=== PATIENT | female | born 1965 | race Caucasian/White ===

== ENCOUNTER 2023-04-09 09:40 | Emergency (ER) | payer BC, SELFPAY ==
[2023-04-09 09:45] VITALS: BP 111/64; PULSE 43; RESP 16; TEMP 36.8; O2SAT 97; BMI 25.2
--- NOTE | 2023-04-09 10:04 | PC.NURSE ---
urine sample collected at this time
[2023-04-09 10:12] LABS: Bilirubin Urine NEGATIVE (NEGATIVE); Blood Urine SMALL (NEGATIVE); Clarity Urine CLEAR (CLEAR); Color Urine LT. YELLOW (YELLOW); Glucose Urine UA NEGATIVE (NEGATIVE); Ketones Urine NEGATIVE (NEGATIVE); Leukocyte Esterase Urine NEGATIVE (NEGATIVE); Nitrite Urine NEGATIVE (NEGATIVE); Protein Urine NEGATIVE (NEG/TRACE); Specific Gravity Urine 1.015 (1.005-1.025); Urobilinogen Urine 0.2 EU/dL (0.2-1.0)
[2023-04-09 10:14] LABS: Urine Microscopic Indicated YES
[2023-04-09 10:21] LABS: Basophils Absolute Auto 0.1 10^3/uL (0.0-0.1); Basophils Percent Auto 0.3 % (0.2-2.0); Eosinophils Absolute Auto 0.1 10^3/uL (0.0-0.7); Eosinophils Percent Auto 0.4 % (0.9-7.0); Hematocrit 37.3 % (36.0-48.0); Hemoglobin 12.7 g/dL (12.0-16.0); Immature Granulocytes Abs Auto 0.04 10^3/uL (0.00-0.03); Immature Granulocytes Pct Auto 0.3 % (0.0-0.5); Lymphocytes Absolute Auto 1.5 10^3/uL (1.2-3.8); Mean Platelet Volume 8.6 fL (9.5-13.5); Monocytes Absolute Auto 1.1 10^3/uL (0.3-0.8); Monocytes Percent Auto 7.1 % (1.7-12.0); Neutrophils Absolute Auto 12.4 10^3/uL (1.4-6.5); Neutrophils Percent Auto 81.9 % (43.0-75.0); Platelet Count 356 10^3/uL (150-450); Red Cell Distribution Width 13.2 % (11.0-15.0); White Blood Count 15.2 10^3/uL (4.0-11.0)
[2023-04-09 10:23] LABS: Bacteria Urine NONE SEEN #/HPF (NONE SEEN); Cast Seen? NONE SEEN #/LPF (NONE SEEN); Crystals Seen? None Seen #/HPF (None Seen); Mucus Urine NONE SEEN (NONE SEEN); Squamous Epithelial Cell Urine MODERATE #/LPF (NONE/RARE); Urine Culture Indicated NO; WBC Urine NONE SEEN #/HPF (NONE SEEN)
[2023-04-09] MEDS: PHENAZOPYRIDINE 100 MG TABLET PO (10:28)
[2023-04-09] MEDS: ONDANSETRON 4 MG RAPDIS TABLET SL (10:34)
[2023-04-09 10:35] LABS: Anion Gap 11.8; BUN Creatinine Ratio 13.1; Calcium 8.6 mg/dL (8.5-10.1); Carbon Dioxide 26.2 mmol/L (21.0-32.0); Chloride 99 mmol/L (98-107); Estimated GFR (African America >60 (>=60); Estimated GFR (Non-African Ame >60 (>=60); Glucose 119 mg/dL (74-106); Sodium 133 mmol/L (136-145)
--- NOTE | 2023-04-09 10:52 | CT_ITS ---
The [address] [address] Patient Name: SILVERIO GOODSON MRN: [id number] date: 1965 Sex: F Assigned Patient Location: ER Current Patient Location: ER Accession/Order Number: [id number] Exam Date: 04/09/2023 10:48 Report Date: 04/09/2023 11:15 At the request of: KATYA REED Procedure: CT abdomen pelvis wo con CT abdomen and pelvis without contrast CLINICAL: lower abdominal pain COMPARISON: None. TECHNIQUE: Computed tomography of the abdomen and pelvis was performed without intravenous contrast. Coronal and sagittal reformations were obtained. Dose reduction: mA and/or kV are adjusted by automated exposure control software based on patient size. FINDINGS: Soft tissue structures throughout the abdomen and pelvis are suboptimally evaluated without intravenous and oral contrast. There is a small amount of fluid in the stomach. Small and large bowel loops are normal caliber. There is moderate colonic stool burden and mild sigmoid diverticulosis, and scattered diverticula throughout the remainder of colon. There is subtle stranding and trace fluid around the decompressed mid to distal sigmoid colon (image 112 series 3, image 58 series 5), probably localized area of acute diverticulitis, although would be better evaluated with intravenous contrast. No suspicion for drainable abscess. No free air. Cecum is displaced into the right lower quadrant. The appendix is best seen on image 96 series 3, image 46 series 5), and normal in appearance without acute appendicitis. Liver and spleen size are normal. No inflammation of gallbladder or pancreas. No radiopaque gallstones. Adrenal glands are normal. Kidneys are normal in size without perinephric stranding or hydroureteronephrosis. There is no renal or ureteral calculus. There is a partially exophytic right lower pole renal cyst measuring 4.5 cm. Bladder is decompressed and not well evaluated but no renal stone. Uterus identified. No gross adnexal abnormality. Limited imaging of lower chest demonstrates clear lungs. There are mild endplate degenerative spurs of the thoracolumbar spine. No acute osseous abnormality.. IMPRESSION: 1. Suboptimal evaluation of soft tissue structures inclusive of bowel without intravenous and oral contrast. There is colonic diverticulosis that is worse in the sigmoid, with subtle stranding and trace fluid around the decompressed mid to distal sigmoid colon that is likely acute diverticulitis. Correlate with symptoms and follow-up to resolution. No or free air or suspicion for drainable abscess. 2. Normal appendix. 3. Negative for urinary calculus or renal obstruction/inflammation. Incidental 4.5 cm right renal cyst. 4. Additional incidental findings discussed above. Electronically authenticated by: LIDYA PHAN Date: 04/09/2023 11:15
--- NOTE | 2023-04-09 11:18 | ED_ITS ---
HPI - Abdominal Pain General Chief Complaint: Abdominal Pain Stated Complaint: ABDOMINAL PAIN/CRAMPING/NAUSEA Time Seen by Provider: 04/09/23 10:00 Source: patient Mode of arrival: walk-in Limitations: no limitations History of Present Illness HPI narrative: woke this morning with lower abdominal pain and nausea that comes in waves. No change with 3 soft BMs. No urinary pain. She said that she might be urinating less amounts that normal. No fever or chills. No flank pain. No vomiting but nausea is intermittent. Related Data Previous Rx's Medication Instructions Recorded ciprofloxacin HCl 500 mg tablet 500 mg PO BID #14 tabs 04/09/23 (Cipro) hyoscyamine sulfate 0.125 mg 0.125 mg PO Q6H PRN abdominal pain 04/09/23 sublingual tablet (Levsin/SL) #20 tabs metronidazole 500 mg tablet 500 mg PO TID #21 tabs 04/09/23 ondansetron 4 mg disintegrating 4 mg PO Q6H PRN nausea and 04/09/23 tablet vomiting #20 tabs Allergies Allergy/AdvReac Type Severity Reaction Status Date / Time amoxicillin Allergy Severe Nausea Verified 04/09/23 09:45 PFSH PFS Social History Smoking status: Never smoker Exam Narrative Exam Narrative: Nurses notes and vital signs reviewed and patient is not hypoxic. afebrile General: Well-appearing and in no apparent distress. Skin: Warm, dry, no pallor noted. No rash. Head: Normocephalic, atraumatic. Neck: Supple, non-tender. Eye: Pupils are equal, round and EOMI. No scleral icterus. Ears, Nose, Mouth, and Throat: Oral mucosa is moist Cardiovascular: Regular Rate and Rhythm without murmur, gallop or rub. Respiratory: No accessory muscle use or respiratory distress. Lungs are clear to auscultation, no wheezing, rales or rhonchi Back: No midline thoracic or lumbar vertebral tenderness. No CVA tenderness Musculoskeletal: normal ROM GI: Abdomen is soft, non-distended. Normal bowel sounds. No masses appreciated. suprapubic and lower abdominal tenderness to palpation. No rebound, guarding, or rigidity noted. Neurological: A&O x4. No cranial nerve dysfunction observed. No truncal ataxia. Moves all extremities. Sensation intact. Psychiatric: Cooperative and interactive. Normal mood and affect. Constitutional Vital Signs - 24 hr 04/09/23 09:45 04/09/23 11:35 Temperature 98.3 F 98.2 F Pulse Rate [Monitor] 43 L 81 Respiratory Rate 16 16 Blood Pressure [Right Arm] 111/64 113/68 Pulse Oximetry 97 97 Oxygen Delivery Method Room Air Course Vital Signs Vital signs: Vital Signs Temperature 98.3 F 04/09/23 09:45 Pulse Rate 43 L 04/09/23 09:45 Respiratory Rate 16 04/09/23 09:45 Blood Pressure 111/64 04/09/23 09:45 Pulse Oximetry 97 04/09/23 09:45 Oxygen Delivery Method Room Air 04/09/23 09:45 Temperature 98.2 F 04/09/23 11:35 Pulse Rate 81 04/09/23 11:35 Respiratory Rate 16 04/09/23 11:35 Blood Pressure 113/68 04/09/23 11:35 Pulse Oximetry 97 04/09/23 11:35 Oxygen Delivery Method Room Air 04/09/23 09:45 MDM - Abdominal Pain MDM Narrative Medical decision making narrative: and blood and urine sent for testing. The urine did not show sign of infection. White blood cell count was elevated at fifteen thousand, therefore the patient w as sent for CT scanning of the abdomen pelvis. No contrast was used. CT identified acute appendicitis in the sigmoid colon, consistent with the patient's exam findings. Patient was informed of results, prescribed Cipro, Flagyl, Zofran and Levsin to take at home and instructed to return to the emergency Department if her symptoms worsen. She was given Pyridium in the emergency Department when she 1st presented concerned she might have acute urinary tract infection. She was also given Zofran while in the emergency department. Lab Data Attestation: I reviewed the patient's lab results. Labs: Lab Results 04/09/23 04/09/23 04/09/23 Range/Units 09:56 10:14 10:15 WBC 15.2 H (4.0-11.0) 10^3/uL RBC 4.10 L (4.20-5.40) 10^6/uL Hgb 12.7 (12.0-16.0) g/dL Hct 37.3 (36.0-48.0) % MCV 91.0 (81.0-99.0) fL MCH 31.0 (26.7-34.0) pg MCHC 34.0 (29.9-35.2) g/dL RDW 13.2 (11.0-15.0) % Plt Count 356 (150-450) 10^3/uL MPV 8.6 L (9.5-13.5) fL Neut % (Auto) 81.9 H (43.0-75.0) % Lymph % (Auto) 10.0 L (20.5-60.0) % [place] % (Auto) 7.1 (1.7-12.0) % Eos % (Auto) 0.4 L (0.9-7.0) % Baso % (Auto) 0.3 (0.2-2.0) % Neut # (Auto) 12.4 H (1.4-6.5) 10^3/uL Lymph # (Auto) 1.5 (1.2-3.8) 10^3/uL [place] # (Auto) 1.1 H (0.3-0.8) 10^3/uL Eos # (Auto) 0.1 (0.0-0.7) 10^3/uL Baso # (Auto) 0.1 (0.0-0.1) 10^3/uL Abs Immat Gran (auto) 0.04 H (0.00-0.03) 10^3/uL Imm/Tot Granulo (auto) 0.3 (0.0-0.5) % Sodium 133 L (136-145) mmol/L Potassium 4.0 (3.5-5.1) mmol/L Chloride 99 (98-107) mmol/L Carbon Dioxide 26.2 (21.0-32.0) mmol/L Anion Gap 11.8 BUN 11.0 (7.0-18.0) mg/dL Creatinine 0.84 (0.55-1.02) mg/dL Est GFR ( Amer) >60 (>=60) Est GFR (Non-Af Amer) >60 (>=60) BUN/Creatinine Ratio 13.1 Glucose 119 H (74-106) mg/dL Calcium 8.6 (8.5-10.1) mg/dL Urine Color Lt. yellow (YELLOW) Urine Clarity Clear (CLEAR) Urine pH 8.0 (5.0-9.0) Ur Specific [place] 1.015 (1.005-1.025) Urine Protein Negative (NEG/TRACE) mg/dL Urine Glucose (UA) Negative (NEGATIVE) mg/dL Urine Ketones Negative (NEGATIVE) mg/dL Urine Occult Blood Small A (NEGATIVE) Urine Nitrite Negative (NEGATIVE) Urine Bilirubin Negative (NEGATIVE) Urine Urobilinogen 0.2 (0.2-1.0) EU/dL Ur Leukocyte Esterase Negative (NEGATIVE) Urine RBC 2-5 A (0-2) #/HPF Urine WBC None seen (NONE SEEN) #/HPF Ur Squamous Epith Cells Moderate A (NONE/RARE) #/LPF Urine Crystals None seen (None Seen) #/HPF Urine Bacteria None seen (NONE SEEN) #/HPF Urine Casts None seen (NONE SEEN) #/LPF Urine Mucus None seen (NONE SEEN) Ur Culture Indicated? No Imaging Data ct abd/pelvis: Radiologist's impression: Patient Name: SILVERIO GOODSON MRN: [facility]:[id number] date: 1965 Sex: F Assigned Patient Location: ER Current Patient Location: ER Accession/Order Number: [id number] Exam Date: 04/09/2023 10:48 Report Date: 04/09/2023 11:15 At the request of: KATYA REED Procedure: CT abdomen pelvis wo con CT abdomen and pelvis without contrast CLINICAL: lower abdominal pain COMPARISON: None. TECHNIQUE: Computed tomography of the abdomen and pelvis was performed without intravenous contrast. Coronal and sagittal reformations were obtained. Dose reduction: mA and/or kV are adjusted by automated exposure control software based on patient size. FINDINGS: Soft tissue structures throughout the abdomen and pelvis are suboptimally evaluated without intravenous and oral contrast. There is a small amount of fluid in the stomach. Small and large bowel loops are normal caliber. There is moderate colonic stool burden and mild sigmoid diverticulosis, and scattered diverticula throughout the remainder of colon. There is subtle stranding and trace fluid around the decompressed mid to distal sigmoid colon (image 112 series 3, image 58 series 5), probably localized area of acute diverticulitis, although would be better evaluated with intravenous contrast. No suspicion for drainable abscess. No free air. Cecum is displaced into the right lower quadrant. The appendix is best seen on image 96 series 3, image 46 series 5), and normal in appearance without acute appendicitis. Liver and spleen size are normal. No inflammation of gallbladder or pancreas. No radiopaque gallstones. Adrenal glands are normal. Kidneys are normal in size without perinephric stranding or hydroureteronephrosis. There is no renal or ureteral calculus. There is a partially exophytic right lower pole renal cyst measuring 4.5 cm. Bladder is decompressed and not well evaluated but no renal stone. Uterus identified. No gross adnexal abnormality. Limited imaging of lower chest demonstrates clear lungs. There are mild endplate degenerative spurs of the thoracolumbar spine. No acute osseous abnormality.. IMPRESSION: 1. Suboptimal evaluation of soft tissue structures inclusive of bowel without intravenous and oral contrast. There is colonic diverticulosis that is worse in the sigmoid, with subtle stranding and trace fluid around the decompressed mid to distal sigmoid colon that is likely acute diverticulitis. Correlate with symptoms and follow-up to resolution. No or free air or suspicion for drainable abscess. 2. Normal appendix. 3. Negative for urinary calculus or renal obstruction/inflammation. Incidental 4.5 cm right renal cyst. 4. Additional incidental findings discussed above. Electronically authenticated by: LIDYA PHAN Date: 04/09/2023 11:15 Discharge Plan Discharge Chief Complaint: Abdominal Pain Clinical Impression: Diverticulitis Patient Disposition: Home, Self-Care Time of Disposition Decision: 11:20 Prescriptions / Home Meds: New ciprofloxacin HCl [Cipro] 500 mg tablet 500 mg PO BID Qty: 14 0RF metronidazole 500 mg tablet 500 mg PO TID Qty: 21 0RF ondansetron 4 mg tablet,disintegrating 4 mg PO Q6H PRN (Reason: nausea and vomiting) Qty: 20 0RF hyoscyamine sulfate [Levsin/SL] 0.125 mg tablet, sublingual 0.125 mg PO Q6H PRN (Reason: abdominal pain) Qty: 20 0RF Instructions: Diverticulitis (ED) Stand Alone Forms: Portal Instructions Referrals: Physician,Non-Staff, MD [Primary Care Provider] - 1 week Discharge Date/Time: 04/09/23 11:36
[2023-04-09 11:35] VITALS: BP 113/68; PULSE 81; RESP 16; TEMP 36.8; O2SAT 97
== END 2023-04-09 11:36 | disposition home or self-care (01) ==
PROVIDERS: Emergency Provider Emergency Medicine
DX: K57.32 Diverticulitis of large intestine without perforation or abscess without bleeding (principal)
CPT/HCPCS: 36415; 74176; 80048; 81003; 81015; 85025; 99284

== ENCOUNTER 2023-06-15 07:45 | Outpatient (OUT) | payer BC, SELFPAY ==
[2023-06-15 08:16] LABS: Basophils Percent Auto 0.6 % (0.2-2.0); Eosinophils Absolute Auto 0.1 10^3/uL (0.0-0.7); Eosinophils Percent Auto 1.3 % (0.9-7.0); Hematocrit 42.4 % (36.0-48.0); Hemoglobin 14.1 g/dL (12.0-16.0); Immature Granulocytes Abs Auto 0.01 10^3/uL (0.00-0.03); Immature Granulocytes Pct Auto 0.2 % (0.0-0.5); Lymphocytes Percent Auto 43.2 % (20.5-60.0); Mean Corpuscular HGB Conc 33.3 g/dL (29.9-35.2); Mean Corpuscular Hemoglobin 30.8 pg (26.7-34.0); Mean Corpuscular Volume 92.6 fL (81.0-99.0); Mean Platelet Volume 8.5 fL (9.5-13.5); Monocytes Absolute Auto 0.5 10^3/uL (0.3-0.8); Monocytes Percent Auto 9.9 % (1.7-12.0); Neutrophils Absolute Auto 2.1 10^3/uL (1.4-6.5); Neutrophils Percent Auto 44.8 % (43.0-75.0); Platelet Count 345 10^3/uL (150-450); Red Blood Count 4.58 10^6/uL (4.20-5.40); Red Cell Distribution Width 13.2 % (11.0-15.0); White Blood Count 4.7 10^3/uL (4.0-11.0)
[2023-06-15 08:44] LABS: Creatinine Urine Random 152.32 mg/dL (20.00-300.00); Microalbum Creatinine Ratio Ur 8.5 mg/g (0.0-29.9); Microalbumin Urine Random 1.3 mg/dL (<=30.0)
[2023-06-15 08:59] LABS: Alanine Aminotransferase 24 U/L (14-59); Albumin Level 4.1 g/dL (3.4-5.0); Alkaline Phosphatase 38 U/L (46-116); Anion Gap 10.5; Aspartate Amino Transferase 13 U/L (15-37); BUN Creatinine Ratio 11.1; Bilirubin Total 0.5 mg/dL (0.2-1.0); Calcium 9.2 mg/dL (8.5-10.1); Carbon Dioxide 32.3 mmol/L (21.0-32.0); Chloride 102 mmol/L (98-107); Chol HDL Ratio 3.6; Cholesterol 237 mg/dL (<=200); Estimated GFR (African America >60 (>=60); Estimated GFR (Non-African Ame >60 (>=60); Globulin 4.3 g/dL; Glucose 92 mg/dL (74-106); HDL Cholesterol 66 mg/dL (40-60); Potassium 3.8 mmol/L (3.5-5.1); Sodium 141 mmol/L (136-145); Total Protein 8.4 g/dL (6.4-8.2); Triglycerides 56 mg/dL (<=150); VLDL CHOLESTEROL 11.2 mg/dL
[2023-06-15 09:39] LABS: Estimated Average Glucose 100 mg/dL; Glycohemoglobin A1C 5.1 % (4.5-6.2)
[2023-06-15 09:45] LABS: Thyroid Stimulating Hormone 1.467 uIU/mL (0.358-3.740)
== END 2023-06-15 07:46 | disposition home or self-care (01) ==
PROVIDERS: PCP Family Medicine; Visit Provider Family Medicine
DX: Z00.00 Encounter for general adult medical examination without abnormal findings (principal)
CPT/HCPCS: 36415; 80053; 80061; 82043; 82306; 82570; 82607; 82746; 83036; 84443; 85025